=== PATIENT | male | born 1980 | race Caucasian/White ===

== ENCOUNTER 2019-01-14 17:17 | Emergency (ER) | payer MEDICARE, OTHER ==
[~2019-01-14] VITALS: Ht 162.6 cm; Wt 134.3 kg
[~2019-01-14 17:17] MED LIST: ALBU3IS NEB; ARIP15; CEFD300; DIVA250ER PO; DIVA500EC PO; GUAI600T33 PO; HYDHOMSY PO; LEVO750 PO; LEVSOD75 PO; LORA10ER; LORA10ER PO; LOVA20 PO; METPRE4DP PO; MONT10T; MONT10T PO; NEOPOLHCSU OT; PRED10 PO; Percocet 5-3251 EACH PO; Prednisone20 MG PO; SERT100
[2019-01-14] MEDS ORDERED: FURO40 PO (17:47)
[2019-01-14] MEDS ORDERED: SERT100 PO (17:47)
[2019-01-14] MEDS ORDERED: POTCHL20ER PO (17:48)
[2019-01-14 18:23] LABS: BASOPHILS ABSOLUTE AUTO 0.07 K/mm3 (0.00-0.23); BASOPHILS PERCENT AUTO 1 % (0-2); EOSINOPHILS ABSOLUTE AUTO 0.01 K/mm3 (0.00-0.68); EOSINOPHILS PERCENT AUTO 0 % (0-6); Hematocrit 37.6 % (37.0-53.0); Hemoglobin 12.2 g/dL (13.5-17.5); IMMATURE GRAN ABSOLUTE AUTO 0.05 K/mm3 (0.00-0.10); IMMATURE GRAN PERCENT AUTO 1 % (0-1); LYMPHOCYTES ABSOLUTE AUTO 1.11 K/mm3 (0.84-5.20); LYMPHOCYTES PERCENT AUTO 12 % (21-46); MONOCYTES ABSOLUTE AUTO 0.65 K/mm3 (0.16-1.47); MONOCYTES PERCENT AUTO 7 % (4-13); Mean Corpuscular HGB 31.8 pg (26.0-34.0); Mean Corpuscular HGB Conc 32.4 g/dL (31.5-36.5); Mean Corpuscular Volume 98 fL (80-100); Mean Platelet Volume 11.2 fL (9.1-12.4); NEUTROPHILS ABSOLUTE AUTO 7.23 K/mm3 (1.96-9.15); NEUTROPHILS PERCENT AUTO 79 % (41-73); Platelet Count 175 K/mm3 (150-400); RDW Coefficient Variation 14.3 % (11.7-14.2); RDW Standard Deviation 50.9 fL (35.1-46.3); Red Blood Cell Count 3.84 M/mm3 (4.30-5.90); White Blood Cell Count 9.12 K/mm3 (4.00-11.30)
[2019-01-14 19:06] LABS: Alanine Aminotransfer (ALT/SGP 15 U/L (12-78); Albumin, Blood 3.1 g/dL (3.4-5.0); Albumin/Globulin Ratio 0.6 (0.8-1.8); Alk Phos 68 U/L (50-136); Anion Gap 8 mmol/L (6-16); Aspartate Aminotrans (AST/SGOT 13 U/L (12-37); Bilirubin, Total 0.3 mg/dL (0.1-1.0); Blood Urea Nitrogen 19 mg/dL (8-24); Bun/Creatinine Ratio 18.8 (12.0-20.0); CO2, Blood 27 mmol/L (21-32); Chloride, Blood 103 mmol/L (98-108); Creatinine, Blood 1.01 mg/dL (0.60-1.20); Globulin, Blood 5.1 g/dL (2.2-4.0); Glomerular Filtration Rate >60 (60-); Glucose, Blood 98 mg/dL (70-99); Potassium, Blood 3.8 mmol/L (3.5-5.5); Sodium, Blood 138 mmol/L (136-145); Total Protein, Blood 8.2 g/dL (6.4-8.2)
[2019-01-14] MEDS ORDERED: Prednisone20 MG PO (20:02)
== END 2019-01-14 20:11 | disposition home or self-care (01) ==
LOC: ER 17:17
PROVIDERS: Emergency Medicine
DX: J45.901 Unspecified asthma with (acute) exacerbation (principal); Z79.899 Other long term (current) drug therapy; F32.9 Major depressive disorder, single episode, unspecified
CPT/HCPCS: 36415; 80053; 83880; 84484; 85025; 93005; 93010; 94640; 96374; 99283-25; J2930

== ENCOUNTER → 2020-01-10 | Outpatient (CLI) | payer MEDICARE, OTHER ==
[~2020-01-10] MED LIST changes: +FURO40 PO; +POTCHL20ER PO; +SERT100 PO
== END | disposition home or self-care (01) ==
LOC: LAB SHORT 16:18 → LAB EV 16:18
DX: L03.119 Cellulitis of unspecified part of limb (principal)
CPT/HCPCS: 87070; 87077; 87147; 87186; 87205

== ENCOUNTER 2021-05-30 18:11 | Inpatient (IN) | payer MEDICARE, OTHER ==
[~2021-05-30] VITALS: Ht 167.6 cm; Wt 125.7 kg
[2021-05-30 19:50] LABS: Alanine Aminotransfer (ALT/SGP 22 U/L (12-78); Albumin, Blood 2.4 g/dL (3.4-5.0); Albumin/Globulin Ratio 0.4 (0.8-1.8); Alk Phos 63 U/L (50-136); Anion Gap 10 mmol/L (6-16); Aspartate Aminotrans (AST/SGOT 45 U/L (12-37); BASOPHILS ABSOLUTE AUTO 0.02 K/mm3 (0.00-0.23); BASOPHILS PERCENT AUTO 0 % (0-2); Bilirubin, Total 0.6 mg/dL (0.1-1.0); Blood Urea Nitrogen 58 mg/dL (8-24); Bun/Creatinine Ratio 34.3 (12.0-20.0); CO2, Blood 29 mmol/L (21-32); Calcium, Blood 8.2 mg/dL (8.5-10.1); Chloride, Blood 96 mmol/L (98-108); Creatinine, Blood 1.69 mg/dL (0.60-1.20); EOSINOPHILS PERCENT AUTO 0 % (0-6); Globulin, Blood 5.5 g/dL (2.2-4.0); Glomerular Filtration Rate 46 (60-); Glucose, Blood 107 mg/dL (70-99); Hematocrit 38.2 % (37.0-53.0); Hemoglobin 12.8 g/dL (13.5-17.5); Magnesium, Blood 2.2 mg/dL (1.6-2.4); Mean Corpuscular HGB 30.8 pg (26.0-34.0); Mean Corpuscular HGB Conc 33.5 g/dL (31.5-36.5); Mean Corpuscular Volume 92 fL (80-100); Mean Platelet Volume 12.3 fL (9.1-12.4); NRBC ABSOLUTE 0.05 K/mm3 (0.00-0.02); Platelet Count 116 K/mm3 (150-400); RDW Coefficient Variation 14.8 % (11.7-14.2); Red Blood Cell Count 4.16 M/mm3 (4.30-5.90); Sodium, Blood 135 mmol/L (136-145); Total Protein, Blood 7.9 g/dL (6.4-8.2); Troponin I <0.015 ng/mL (0.000-0.040); White Blood Cell Count 5.22 K/mm3 (4.00-11.30)
[2021-05-30 19:51] LABS: IMMATURE GRAN ABSOLUTE AUTO 0.11 K/mm3 (0.00-0.10); IMMATURE GRAN PERCENT AUTO 2 % (0-1); LYMPHOCYTES PERCENT AUTO 8 % (21-46); MONOCYTES ABSOLUTE AUTO 0.27 K/mm3 (0.16-1.47); MONOCYTES PERCENT AUTO 5 % (4-13); NEUTROPHILS ABSOLUTE AUTO 4.42 K/mm3 (1.96-9.15); NEUTROPHILS PERCENT AUTO 85 % (41-73)
[2021-05-30] MEDS ORDERED: ALBU2.5V5 INH (23:26)
--- NOTE | 2021-05-31 00:01 | NUR ---
PT ADMITTED VIA GURNEY FROM ER. PT TRANSFERRED TO MEDICAL FLOOR BED WITH 4 STAFF PRESENT. PT ABLE TO FOLLOW INSTRUCTIONS WITH TURNING SIDE TO SIDE. PT IS ALERT TO PERSON, REORIENTED TO SURROUNDINGS, CALL LIGHT, DATE/TIME. PT HAS DOWN SYNDROME. PT ABLE TO ANSWER YES/NO QUESTIONS, AND RESPONDS TO OCCASIONAL QUESTION APPROPRIATELY. PT PLACED ON 15L HIGH FLOW, WITH HUMIDIFIED OXYGEN. CALL LIGHT WITHIN REACH. BED ALARM ON FOR PT SAFETY. IV TO LEFT HAND FLUSHED WITHOUT COMPLICATIONS.
--- NOTE | 2021-05-31 01:04 | NUR ---
PT IS CURRENTLY SLEEPING, AWAKENS TO VERBAL COMMUNICATION BUT DRIFTS OFF BACK TO SLEEP. PT AWOKE STARTED, REORIENTED TO ROOM, CALL LIGHT. BED ALARM ON. URINAL AT BEDSIDE.
[2021-05-31 05:32] LABS: BASOPHILS ABSOLUTE AUTO 0.01 K/mm3 (0.00-0.23); BASOPHILS PERCENT AUTO 0 % (0-2); EOSINOPHILS PERCENT AUTO 0 % (0-6); Hematocrit 36.2 % (37.0-53.0); Hemoglobin 11.9 g/dL (13.5-17.5); Mean Corpuscular HGB 30.7 pg (26.0-34.0); Mean Corpuscular HGB Conc 32.9 g/dL (31.5-36.5); Mean Corpuscular Volume 94 fL (80-100); Mean Platelet Volume 12.5 fL (9.1-12.4); NRBC ABSOLUTE 0.03 K/mm3 (0.00-0.02); NRBC Auto 0.6 /100 WBC (0.0-0.2); Platelet Count 112 K/mm3 (150-400); RDW Coefficient Variation 14.8 % (11.7-14.2); RDW Standard Deviation 51.2 fL (35.1-46.3); Red Blood Cell Count 3.87 M/mm3 (4.30-5.90); White Blood Cell Count 5.39 K/mm3 (4.00-11.30)
[2021-05-31 05:40] LABS: IMMATURE GRAN ABSOLUTE AUTO 0.09 K/mm3 (0.00-0.10); IMMATURE GRAN PERCENT AUTO 2 % (0-1); LYMPHOCYTES PERCENT AUTO 6 % (21-46); MONOCYTES ABSOLUTE AUTO 0.16 K/mm3 (0.16-1.47); MONOCYTES PERCENT AUTO 3 % (4-13); NEUTROPHILS ABSOLUTE AUTO 4.83 K/mm3 (1.96-9.15); NEUTROPHILS PERCENT AUTO 90 % (41-73)
[2021-05-31 05:42] LABS: Albumin, Blood 2.3 g/dL (3.4-5.0); Albumin/Globulin Ratio 0.4 (0.8-1.8); Bilirubin, Total 0.6 mg/dL (0.1-1.0); Bun/Creatinine Ratio 36.2 (12.0-20.0); Calcium, Blood 8.3 mg/dL (8.5-10.1); Creatinine, Blood 1.52 mg/dL (0.60-1.20); Globulin, Blood 5.4 g/dL (2.2-4.0); Potassium, Blood 4.8 mmol/L (3.5-5.5); Total Protein, Blood 7.7 g/dL (6.4-8.2)
--- NOTE | 2021-05-31 07:22 | NUR ---
SHIFT SUMMARY - NO ACUTE CHANGES SINCE ADMIT LAST NOC AT 2400. LR INFUSING WITHOUT DIFFICULTY TO LEFT HAND IV SITE. PT'S MOUTH/LIPS VERY DRY - ORAL CARE PROVIDED, PT TOLERATED PO FLUIDS WITHOUT DIFFICULTY. SATS WNL 15 L OXYGEN VIA HF NC. PT HAS DOWN SYNDROME. PT SLOW TO RESPOND, BUT HAS BEEN ABLE TO MAKE HIS NEEDS KNOWN WHILE IN THE ROOM. CALL LIGHT WITHIN REACH. BED IN LOW POSITION. FLUIDS AT BEDSIDE. BED ALARM ON FOR PT SAFETY.
[2021-05-31 07:56] LABS: PCO2 Arterial 52.4 mmHg (35-45); PO2 Arterial 70.3 mmHg (80-100); pH Blood Arterial 7.41 (7.35-7.45)
--- NOTE | 2021-05-31 08:45 | NUR ---
UPGRADE TO BIPAP. PER CONVO WITH DR. BARBER THIS AM, PT NEEDS TO BE PLACED ON BIPAP TO HELP WITH CO2 RETENTION. NEEMA, RT NOTIFIED.
--- NOTE | 2021-05-31 11:29 | NUR ---
PTS MOTHER JOSE RAMON UPDATED PTS MOTHER UPDATED. DURING UPDATE SHE STATED THAT SHE DID NOT WANT HER SON RECIEVING REMDESIVIR. PT EDUCATED THAT WE OBSEVERE KIDNEY FUNCTION PRIOR TO STARTING THIS MEDICATION. PT STATES SHE3 DOES CARE AND WANTS HER SON TO BE ON IVERMECTIN INSTEAD. DR. BARBER RELAYED THIS INFO AND GIVEN PTS MOTHERS NUMBER.
[2021-05-31 18:14] LABS: Source, Urine Catheter
[2021-05-31 18:18] LABS: Appearance, Urine Clear (Clear); Bilirubin, Urine Neg (Neg); Blood, Urine Neg (Neg); Color, Urine Yellow (P-Yellow); Glucose Qualitative, Urine Neg (Neg); Ketones, Urine Neg (Neg); Leukocyte Esterase, Urine Neg (Neg); Nitrite, Urine Neg (Neg); Protein, Urine 1+ (Neg); Specific Gravity, Urine 1.015 (1.003-1.022); Urobilinogen, Urine 1+ (Normal)
--- NOTE | 2021-05-31 18:32 | NUR ---
SHIFT SUMMARY/URINARY RETENTION PT TRANSITIONED TO THE CPAP 70% FIO2. PT CURRENTLY ON HFT MODE AND TOLERATING WELL AT 92%. PT UNABLE TO VOID THIS SHIFT. BLADDER SCAN VOLUME REVEALED MORE THAN 1400. DR. HUFF NOTIFIED AND ORDER FOR MUÑOZ CATH OBTAINED. MUÑOZ PLACED. PT DID NOT TOLERATE WELL. UNCIRCUMSIZED AND URETHRA WAS DIFFICULT TO LOCATE. DISCHARGE IN THE FORSKIN. MUÑOZ NOW DRAINING WELL. CLAMPED AFTER 1300 CC OUTPUT. MICONAZOLE ORDERED FOR YEAST IN FOLDS.
--- NOTE | 2021-06-01 00:19 | NUR ---
RESPIRATORY PANEL COLLECTED AND SENT TO LAB.
[2021-06-01 01:19] LABS: Adenovirus Not Detected (NOT DETECT); Coronavirus 229E Not Detected (NOT DETECT); Coronavirus HKU1 Not Detected (NOT DETECT); Coronavirus NL63 Not Detected (NOT DETECT); Coronavirus OC43 Not Detected (NOT DETECT)
[2021-06-01 01:20] LABS: SARS-Cov-2 (COVID-19), BioFire Detected (NOT DETECT)
[2021-06-01 01:22] LABS: Bordetella pertussis Not Detected (NOT DETECT); Chlamydophila pneumoniae Not Detected (NOT DETECT); Human Metapneumovirus Not Detected (NOT DETECT); Human Rhinovirus/Enterovirus Not Detected (NOT DETECT); Influenza A/2009-H1 Not Detected (NOT DETECT); Influenza A/H1 Not Detected (NOT DETECT); Influenza A/H3 Not Detected (NOT DETECT); Influenza B Not Detected (NOT DETECT); Mycoplasma pneumoniae Not Detected (NOT DETECT); Parainfluenza Virus 1 Not Detected (NOT DETECT); Parainfluenza Virus 2 Not Detected (NOT DETECT); Parainfluenza Virus 3 Not Detected (NOT DETECT); Parainfluenza Virus 4 Not Detected (NOT DETECT); Respiratory Syncytial Virus Not Detected (NOT DETECT)
[2021-06-01 06:50] LABS: Hemoglobin 12.1 g/dL (13.5-17.5); Mean Corpuscular HGB 30.5 pg (26.0-34.0); Mean Corpuscular HGB Conc 31.8 g/dL (31.5-36.5); Mean Corpuscular Volume 96 fL (80-100); Mean Platelet Volume 12.5 fL (9.1-12.4); NRBC ABSOLUTE 0.07 K/mm3 (0.00-0.02); NRBC Auto 0.9 /100 WBC (0.0-0.2); Platelet Count 113 K/mm3 (150-400); RDW Coefficient Variation 14.9 % (11.7-14.2); RDW Standard Deviation 52.4 fL (35.1-46.3); Red Blood Cell Count 3.97 M/mm3 (4.30-5.90); White Blood Cell Count 8.04 K/mm3 (4.00-11.30)
[2021-06-01 07:15] LABS: Alanine Aminotransfer (ALT/SGP 19 U/L (12-78); Albumin, Blood 2.4 g/dL (3.4-5.0); Albumin/Globulin Ratio 0.4 (0.8-1.8); Alk Phos 55 U/L (50-136); Anion Gap 8 mmol/L (6-16); Aspartate Aminotrans (AST/SGOT 32 U/L (12-37); Bilirubin, Total 0.4 mg/dL (0.1-1.0); Blood Urea Nitrogen 38 mg/dL (8-24); Bun/Creatinine Ratio 37.3 (12.0-20.0); CO2, Blood 28 mmol/L (21-32); Calcium, Blood 8.8 mg/dL (8.5-10.1); Chloride, Blood 98 mmol/L (98-108); Creatinine, Blood 1.02 mg/dL (0.60-1.20); Globulin, Blood 5.5 g/dL (2.2-4.0); Glomerular Filtration Rate >60 (60-); Glucose, Blood 182 mg/dL (70-99); Magnesium, Blood 1.9 mg/dL (1.6-2.4); Sodium, Blood 134 mmol/L (136-145); Total Protein, Blood 7.9 g/dL (6.4-8.2)
[2021-06-01 07:39] LABS: BASOPHILS PERCENT MAN 0 % (0-2); EOSINOPHILS PERCENT MAN 0 % (0-6); LYMPHOCYTES % ATYPICAL MANUAL 1 % (0-0); LYMPHOCYTES ABSOLUTE MAN 0.16 K/mm3 (0.84-5.20); LYMPHOCYTES PERCENT MAN 1 % (21-46); MONOCYTES ABSOLUTE MAN 0.48 K/mm3 (0.16-1.47); MONOCYTES PERCENT MAN 6 % (4-13); NEUTROPHILS ABSOLUTE MAN 7.39 K/mm3 (1.96-9.15); SEG NEUTROPHILS PERCENT MAN 92 % (41-73); TOTAL CELLS COUNTED 100
--- NOTE | 2021-06-01 07:52 | NUR ---
PT WAS ALERT AND ORIENTED AT START OF SHIFT. ON AIRVO AND SATS 90 AND ABOVE. AT 0500 PT STARTED TO DESATURATE ON MONITOR. STAFF ENTERED ROOM WITH PULSE OX AND MONITORED FROM INSIDE. PT CONTINUED TO DESATURATE TO MID 60'S AND BECAME UNRESPONSIVE WHILE RT ON THEIR WAY. ONCE ON BIPAP PT'S O2 STARTED TO INCREASE BACK TO HIS BASELINE. PT THEN BECAME ALERT AND SCARED. PT STARTED TO SHAKE RAPIDLY WHILE TRYING TO PULL HIS BIPAP OFF AND CLIMB OUT OF BED. PT STATES "TAKE IT OFF PLEASE AND i WANT MY MOM." ORDER FOR 1 MG IV ATIVAN WAS ADMIN AND PT WAS ABLE TO RELAX. CURRENTLY RESTING ON BIPAP WITH SATS 90 AND ABOVE. STAFF WILL CONT TO MONITOR.
[2021-06-01 13:33] LABS: PCO2 Arterial 54.1 mmHg (35-45); PO2 Arterial 246 mmHg (80-100); pH Blood Arterial 7.43 (7.35-7.45)
--- NOTE | 2021-06-01 18:49 | NUR ---
SHIFT SUMMARY PT ON BIPAP MOST THE DAY. LETHARGIC THIS AM. ABG CHECKED TODAY. PT MOM VISITED AND UPDATED ON PLAN OF CARE AT THIS TIME. PT TRANSITIONED TO HFT MODE WITH NASAL CANULA CURRENTLY AND TOLERATING WELL. ONE TIME DOSE OF LASIX GIVEN TO HELP WITH FLUID RETENTION. MUÑOZ PATENT & DRAINING.
--- NOTE | 2021-06-02 04:02 | NUR ---
SHIFT SUMMARY PATIENT HAD NO ACUTE CHANGES OBSERVED. LETHARGIC T/O SHIFT. ON HFT MODE STATING 86-92%. MUÑOZ PATENT AND DRAINING. PIV REMAINS INTACT. IV ABXS INFUSED. LR INFUSING AT 75mL/HR. DENIES PAIN AND N/V. BEDREST. NO ANXIETY EVENTS OBSEVED. CBG 99. CALL LIGHT IN REACH. BED IN LOWEST POSITION AND ALARM ACTIVATED. WCTM UNTIL DAY SHIFT NURSE ARRIVES.
[2021-06-02 05:04] LABS: Hematocrit 34.1 % (37.0-53.0); Hemoglobin 11.1 g/dL (13.5-17.5); Mean Corpuscular HGB 30.9 pg (26.0-34.0); Mean Corpuscular HGB Conc 32.6 g/dL (31.5-36.5); Mean Corpuscular Volume 95 fL (80-100); NRBC ABSOLUTE 0.04 K/mm3 (0.00-0.02); NRBC Auto 0.5 /100 WBC (0.0-0.2); RDW Coefficient Variation 15.3 % (11.7-14.2); RDW Standard Deviation 53.1 fL (35.1-46.3); Red Blood Cell Count 3.59 M/mm3 (4.30-5.90)
[2021-06-02 05:09] LABS: Mean Platelet Volume 12.3 fL (9.1-12.4); Platelet Count 80 K/mm3 (150-400)
[2021-06-02 05:39] LABS: Albumin, Blood 2.1 g/dL (3.4-5.0); Anion Gap 5 mmol/L (6-16); Blood Urea Nitrogen 27 mg/dL (8-24); Bun/Creatinine Ratio 30.6 (12.0-20.0); CO2, Blood 31 mmol/L (21-32); Calcium, Blood 8.2 mg/dL (8.5-10.1); Chloride, Blood 101 mmol/L (98-108); Creatinine, Blood 0.88 mg/dL (0.60-1.20); Glomerular Filtration Rate >60 (60-); Glucose, Blood 83 mg/dL (70-99); Magnesium, Blood 1.8 mg/dL (1.6-2.4); Potassium, Blood 4.3 mmol/L (3.5-5.5); Sodium, Blood 137 mmol/L (136-145)
[2021-06-02 06:36] LABS: BASOPHILS PERCENT MAN 0 % (0-2); EOSINOPHILS PERCENT MAN 0 % (0-6); LYMPHOCYTES ABSOLUTE MAN 1.02 K/mm3 (0.84-5.20); LYMPHOCYTES PERCENT MAN 14 % (21-46); MONOCYTES ABSOLUTE MAN 0.21 K/mm3 (0.16-1.47); MONOCYTES PERCENT MAN 3 % (4-13); NEUTROPHILS ABSOLUTE MAN 6.05 K/mm3 (1.96-9.15); SEG NEUTROPHILS PERCENT MAN 83 % (41-73); TOTAL CELLS COUNTED 100
--- NOTE | 2021-06-02 17:26 | NUR ---
PT AOX3 AND COOPERATIVE OF CARE. PT HAS BEEN DOING WELL TODAY AND WAS PUT ON HIGH FLOW NASAL CANULA AND HAS BEEN DOING WELL. PT SEEMS TO BE IN GOOD SPIRITS AND MOTHER IS AT BEDSIDE VISITING. PT IS ABLE TO USE CALL LIGHT AND BED ALARM IS IN PLACE. PT CONTINUES TO HAVE A COUGH AND WILL DESAT WITH A LOT OF MOVEMENT, BUT RECOVERS. WILL CONTINUE TO MONITOR.
--- NOTE | 2021-06-03 05:44 | NUR ---
Pt did well throughout the night, pt on NC, tolerated well. Pt takes pills in a/s, LR running at 75. Contiue POC
--- NOTE | 2021-06-03 17:32 | NUR ---
SHIFT SUMMARY PATIENT IS ALERT AND ORIENTED 2-3X. PATIENT HAS GONE FROM 12L HIGH FLOW NASAL CANNULA TO 15L DURING SHIFT TO MAINTAIN SATS IN THE LOW 90S. PATIENTS MOTHER HAS BEEN VISITING DURING THE AFTERNOON HOURS AND SEEMS TO BRIGHTEN PATIENTS MOOD. PATIENT DESATS WITH MOVEMENT AND EATING. BED IS IN LOCKED AND LOWEST POSITION AND CALL LIGHT IS IN REACH. NO ADDITIONAL NEEDS AT THIS TIME. WILL CONTINUE TO MONITOR UNTIL END OF SHIFT.
--- NOTE | 2021-06-03 17:39 | NUR ---
SHIFT SUMMARY PATIENT ALERT AND ORIENTED X4. PATIENT PLEASANT AND COOPERATIVE WITH CARE. PATIENT HAS BEEN TITRATED DOWN FROM 55L 85% TO 50L 67% ON AIRVO AND MAINTAINING SATS AT 93-94 PERCENT ON LOWERED TITRATION. PATIENT STATES THAT HE FEELS BETTER AND DOES NOT COMPLAIN OF PAIN, SHORTNESS OF BREATH OR ANY NEEDS AT THIS TIME. PATIENTS DAUGHTER WAS UPDATED ON PATIENTS STATUS AND OXYGEN NEEDS THIS AFTERNOON. PATIENT IS CONINENT AND USES URINAL. TELE SINUS RHYTHM. WILL CONTINUE TO MONITOR UNTIL END OF SHIFT.
--- NOTE | 2021-06-03 17:53 | NUR ---
ADMIT: 05/31/21 DISCHARGE: TBD DX: ACUTE RESP. FAILURE DUE TO COVID-19 CC: Manuel WISE MAHESH CALL: MOTHER JOSE RAMON RESIDENCE: LIVES WITH MOTHER - [id number] [facility] [id number] CAREGIVER: MOTHER JOSE RAMON [phone] PRIOR TO ADMIT - DME: CPAP CHRONIC CARE MANAGEMENT: NONE HHC/HOSPICE: NONE UPDATE 06/03/21: PT. ADMITTED OVER THE WEEKEND. PER CHART REVIEW THIS AM, PT. DID NOT HAVE ANY SIGNIFICANT CHANGES OVERNIGHT. NOTED TO CURRENTLY BY ON 15LPM NC WITH SPO2 OF 91%. INCREASE FROM THE 10 LPM HAS BEEN ON. PATIENT'S MOTHER HAS VISITED HIM TODAY. SHE HAS BEEN UPDATED REGARDING HIS CONDITION. ANTICIPATED NEEDS AT TIME OF DISCHARGE TO INCLUDE: HOME O2 EVAL., HOME O2 POTENTIALLY (DEPENDENT UPON IMPROVEMENTS), XARELTO/ELQUIS SAMPLES, AND HOSPITAL F/U WITH 5-7 DAYS POST DISCHARGE. PLAN TO CONTINUE TO FOLLOW PATIENTS PROGRESS AND ASSIST WITH CARE COORDINATION AND DISCHARGE PLANNING NEEDED.
--- NOTE | 2021-06-04 04:56 | NUR ---
SHIFT SUMMARY PT HAS RESTED MOST OF THE NIGHT, AND PREFERS NOT TO BE DISTURBED BY STAFF. PT ON 15L HIGH FLOW THROUGHOUT THE NIGHT AND MAINTAINS SATS IN THE LOW 90'S. PT OCCASIONALLY DESATS IN THE 80'S BUT QUICKLY RECOVERS. PT RESPIRATIONS APPEAR E/U AT REST AND PT DOES NOT APPEAR IN ANY DISTRESS. OCCASIONAL DRY COUGH. IV ABX AND STEROIDS PER ORDERS. MUÑOZ IN PLACE PATENT AND DRAINING. NO ACUTE CHANGES OVERNIGHT. BED IN LOWEST POSITION, CALL LIGHT WITHIN REACH.
[2021-06-04 05:37] LABS: BASOPHILS ABSOLUTE AUTO 0.02 K/mm3 (0.00-0.23); BASOPHILS PERCENT AUTO 0 % (0-2); EOSINOPHILS PERCENT AUTO 0 % (0-6); Hematocrit 34.6 % (37.0-53.0); Hemoglobin 11.4 g/dL (13.5-17.5); Mean Corpuscular HGB 30.6 pg (26.0-34.0); Mean Corpuscular HGB Conc 32.9 g/dL (31.5-36.5); Mean Corpuscular Volume 93 fL (80-100); Mean Platelet Volume 11.8 fL (9.1-12.4); Platelet Count 141 K/mm3 (150-400); RDW Coefficient Variation 14.3 % (11.7-14.2); RDW Standard Deviation 48.5 fL (35.1-46.3); Red Blood Cell Count 3.73 M/mm3 (4.30-5.90); White Blood Cell Count 7.04 K/mm3 (4.00-11.30)
[2021-06-04 05:43] LABS: IMMATURE GRAN ABSOLUTE AUTO 0.19 K/mm3 (0.00-0.10); IMMATURE GRAN PERCENT AUTO 3 % (0-1); LYMPHOCYTES ABSOLUTE AUTO 0.45 K/mm3 (0.84-5.20); LYMPHOCYTES PERCENT AUTO 6 % (21-46); MONOCYTES ABSOLUTE AUTO 0.46 K/mm3 (0.16-1.47); MONOCYTES PERCENT AUTO 7 % (4-13); NEUTROPHILS ABSOLUTE AUTO 5.92 K/mm3 (1.96-9.15); NEUTROPHILS PERCENT AUTO 84 % (41-73)
[2021-06-04 05:58] LABS: Anion Gap 2 mmol/L (6-16); Blood Urea Nitrogen 23 mg/dL (8-24); Bun/Creatinine Ratio 31.2 (12.0-20.0); CO2, Blood 32 mmol/L (21-32); Calcium, Blood 8.9 mg/dL (8.5-10.1); Chloride, Blood 101 mmol/L (98-108); Creatinine, Blood 0.74 mg/dL (0.60-1.20); Glomerular Filtration Rate >60 (60-); Glucose, Blood 166 mg/dL (70-99); Potassium, Blood 4.5 mmol/L (3.5-5.5); Sodium, Blood 135 mmol/L (136-145)
--- NOTE | 2021-06-04 08:37 | NUR ---
HARD TO FLUSH, APPEARS PULLED OUT, WILL RESTART NEW
--- NOTE | 2021-06-04 17:08 | NUR ---
SHIFT SUMMARY PATIENT HAS HAD NO ACUTE EVENTS DURING SHIFT. PATIENT IS ON 13 LITERS HIGH FLOW NASAL CANNULA CURRENTLY AND SATTING IN THE LOW 90S. PATIENT HAS HAD NO COMPLAINTS OF PAIN, NAUSEA, VOMITTING OR SHORTNESS OF BREATH. PATIENTS MOM/CAREGIVER HAS VISITED MOST OF THE SHIFT AND HAS HELPED PATIENTS MOOD. PATIENT HAS HAD INCREASED APPETITE TODAY AND AMBULATED TO CHAIR FOR MEALS AND DOES NO DESAT WHILE EATING.
--- NOTE | 2021-06-04 23:24 | NUR ---
PT has downs syndrome & refusing care & IV restart. IV patent but positional. Solumedrol given & saline flush.
[2021-06-05 05:29] LABS: BASOPHILS ABSOLUTE AUTO 0.02 K/mm3 (0.00-0.23); BASOPHILS PERCENT AUTO 0 % (0-2); EOSINOPHILS PERCENT AUTO 0 % (0-6); Hematocrit 36.5 % (37.0-53.0); Hemoglobin 11.8 g/dL (13.5-17.5); Mean Corpuscular HGB 30.5 pg (26.0-34.0); Mean Corpuscular HGB Conc 32.3 g/dL (31.5-36.5); Mean Corpuscular Volume 94 fL (80-100); Mean Platelet Volume 12.6 fL (9.1-12.4); Platelet Count 157 K/mm3 (150-400); RDW Coefficient Variation 14.3 % (11.7-14.2); RDW Standard Deviation 49.7 fL (35.1-46.3); Red Blood Cell Count 3.87 M/mm3 (4.30-5.90); White Blood Cell Count 6.87 K/mm3 (4.00-11.30)
[2021-06-05 05:37] LABS: IMMATURE GRAN ABSOLUTE AUTO 0.28 K/mm3 (0.00-0.10); IMMATURE GRAN PERCENT AUTO 4 % (0-1); LYMPHOCYTES ABSOLUTE AUTO 0.56 K/mm3 (0.84-5.20); LYMPHOCYTES PERCENT AUTO 8 % (21-46); MONOCYTES ABSOLUTE AUTO 0.41 K/mm3 (0.16-1.47); MONOCYTES PERCENT AUTO 6 % (4-13); NEUTROPHILS PERCENT AUTO 81 % (41-73)
[2021-06-05 05:56] LABS: Anion Gap 3 mmol/L (6-16); Blood Urea Nitrogen 25 mg/dL (8-24); Bun/Creatinine Ratio 34.4 (12.0-20.0); CO2, Blood 33 mmol/L (21-32); Calcium, Blood 8.9 mg/dL (8.5-10.1); Chloride, Blood 101 mmol/L (98-108); Creatinine, Blood 0.73 mg/dL (0.60-1.20); Glomerular Filtration Rate >60 (60-); Glucose, Blood 214 mg/dL (70-99); Potassium, Blood 5.2 mmol/L (3.5-5.5); Sodium, Blood 137 mmol/L (136-145)
--- NOTE | 2021-06-05 06:48 | NUR ---
40 YEAR OLD mALE WITH DOWNS SYNDROME & ASTHMA WITH COVID 19 CONTINUES ON IV STEROIDS & BLOOD GLUCOSE IS ELEVATED ABOVE 200. HE HAS MUÑOZ CATH PLACED FOR ACUTE URINARY RETENTION & I DRAINED 2400 ML DILUTE YELLOW URINE. MEDS WHOLE IN APPLESAUCE PT WAS REFUSING CARES & ASSESSMENT AT HS 7 REFUSED ATTENDS CHANGE ALSO. ONCONT OF PASTY DARK BROWN BM. CONTINUES ON BIOXX &13 L OXIMIXER TO KEEP SATS GREATER THAN 90% OCC DESATS TO 88%.
--- NOTE | 2021-06-05 10:10 | NUR ---
Update 06/05/21: Day 6 of hospitalization. Oxygen needs 13 LPM high flow NC. SPO2 95%. Pt. desats with activity. Patient's mother Adelita has been able to visit him. Nursing notes that pt. has declined care at times. Anticipated needs at time of discharge to include: Home O2 eval, Home O2, hospital F/U within 5-7 days. Patient's mother is his caregiver. Current plan for pt. to return home with his mother Adelita at time of discharge.
--- NOTE | 2021-06-05 18:16 | NUR ---
PATIENT IS ALERT AND ORIENTED AND COOPERATIVE WITH CARE. MUÑOZ IS IN PLACE AND DRAINING. ON 13L OXIMYZER. INCONTINENT OF STOOL. THE PATIENT'S MOM WAS AT THE BEDSIDE THIS AFTERNOOON. HE HAS BEEN UP TO THE RECLINER SINCE LUNCH. WILL BELINDA TO MONITOR
--- NOTE | 2021-06-06 03:30 | NUR ---
40 year old Male with Downs syndrome & covid 19 weaned from 15 l high flow to 8 l high flow oxygen & tolerated well with sats 89 to 97% at rest. HE continues with perez cath for acute urinary retention & again has over 2000 ml urine out in 12 hr shift. He is more pleasant but does says he wants to sleep. Reportedly up in bedside chair on dayshift lunch thru dinner. Sips water only my shift. Does not use call caicedo. Mother involved in care on day shift.
[2021-06-06 05:29] LABS: BASOPHILS ABSOLUTE AUTO 0.03 K/mm3 (0.00-0.23); BASOPHILS PERCENT AUTO 0 % (0-2); EOSINOPHILS PERCENT AUTO 0 % (0-6); Hematocrit 38.7 % (37.0-53.0); Hemoglobin 12.5 g/dL (13.5-17.5); Mean Corpuscular HGB 30.8 pg (26.0-34.0); Mean Corpuscular HGB Conc 32.3 g/dL (31.5-36.5); Mean Corpuscular Volume 95 fL (80-100); Mean Platelet Volume 12.4 fL (9.1-12.4); Platelet Count 166 K/mm3 (150-400); RDW Coefficient Variation 14.2 % (11.7-14.2); RDW Standard Deviation 49.7 fL (35.1-46.3); Red Blood Cell Count 4.06 M/mm3 (4.30-5.90); White Blood Cell Count 7.94 K/mm3 (4.00-11.30)
[2021-06-06 05:43] LABS: IMMATURE GRAN ABSOLUTE AUTO 0.22 K/mm3 (0.00-0.10); IMMATURE GRAN PERCENT AUTO 3 % (0-1); LYMPHOCYTES ABSOLUTE AUTO 0.73 K/mm3 (0.84-5.20); LYMPHOCYTES PERCENT AUTO 9 % (21-46); MONOCYTES ABSOLUTE AUTO 0.46 K/mm3 (0.16-1.47); MONOCYTES PERCENT AUTO 6 % (4-13); NEUTROPHILS PERCENT AUTO 82 % (41-73)
[2021-06-06 05:55] LABS: Anion Gap 2 mmol/L (6-16); Blood Urea Nitrogen 26 mg/dL (8-24); Bun/Creatinine Ratio 36.5 (12.0-20.0); CO2, Blood 34 mmol/L (21-32); Calcium, Blood 8.9 mg/dL (8.5-10.1); Chloride, Blood 101 mmol/L (98-108); Creatinine, Blood 0.71 mg/dL (0.60-1.20); Glomerular Filtration Rate >60 (60-); Glucose, Blood 196 mg/dL (70-99); Potassium, Blood 5.1 mmol/L (3.5-5.5); Sodium, Blood 137 mmol/L (136-145)
--- NOTE | 2021-06-06 06:53 | NUR ---
continued to wean high flow oxygen down to 5 l nc. O2 says 89 to 95 % on 5 l .
--- NOTE | 2021-06-06 18:43 | NUR ---
PATIENT IS ALERT AND ORIENTED AND COOPERATIVE WITH CARE. IMMODIUM ORDERED FOR LOOSE STOOLS THIS AFTERNOON. ON 5L OXYMIZER. UP TO CHAIR FOR BREAKFAST AND DINNER. MUÑOZ IS IN PLACE AND DRAINING. THE PATIENT'S MOM WAS AT THE BEDSIDE THIS AFTERNOON AND ASKED TO TALK TO DR. KIRK. DR. KIRK SAID SHE WOULD CALL THE PATIENT'S MOM TOMORROW. NO NEW CONCERNS TODAY. WILL CONTINUE TO MONITOR
--- NOTE | 2021-06-07 02:53 | NUR ---
40 year old MAle with Covid 19 , asthma & Downs syndrome being weaned off oxygen. Continues with wireless bioxx & is on 2 l high flow with sats 90 to 95%.IF PT desats he quickly recovers at rest. Bioxx showed 86% on 2 l so had to resume 3 l this am when PT wide awake.Sat 93% on 3 l. Mother cares for PT assists with cares during day shift. Incont of bowels tonight, Mother says chronic diarrhea on immodium to tx , rx given once with helpful effect.
[2021-06-07 05:23] LABS: BASOPHILS ABSOLUTE AUTO 0.03 K/mm3 (0.00-0.23); BASOPHILS PERCENT AUTO 0 % (0-2); EOSINOPHILS PERCENT AUTO 0 % (0-6); Hematocrit 38.6 % (37.0-53.0); Hemoglobin 12.3 g/dL (13.5-17.5); Mean Corpuscular HGB 30.4 pg (26.0-34.0); Mean Corpuscular HGB Conc 31.9 g/dL (31.5-36.5); Mean Corpuscular Volume 95 fL (80-100); Mean Platelet Volume 12.5 fL (9.1-12.4); Platelet Count 169 K/mm3 (150-400); RDW Coefficient Variation 14.2 % (11.7-14.2); RDW Standard Deviation 49.1 fL (35.1-46.3); Red Blood Cell Count 4.05 M/mm3 (4.30-5.90); White Blood Cell Count 7.21 K/mm3 (4.00-11.30)
[2021-06-07 05:24] LABS: IMMATURE GRAN ABSOLUTE AUTO 0.19 K/mm3 (0.00-0.10); IMMATURE GRAN PERCENT AUTO 3 % (0-1); LYMPHOCYTES ABSOLUTE AUTO 1.19 K/mm3 (0.84-5.20); LYMPHOCYTES PERCENT AUTO 17 % (21-46); MONOCYTES ABSOLUTE AUTO 0.61 K/mm3 (0.16-1.47); MONOCYTES PERCENT AUTO 9 % (4-13); NEUTROPHILS ABSOLUTE AUTO 5.19 K/mm3 (1.96-9.15); NEUTROPHILS PERCENT AUTO 72 % (41-73)
[2021-06-07 05:48] LABS: Anion Gap 2 mmol/L (6-16); Blood Urea Nitrogen 27 mg/dL (8-24); Bun/Creatinine Ratio 39.6 (12.0-20.0); C-REACTIVE PROTEIN, EXT RANGE 0.363 mg/dL (0.000-0.300); CO2, Blood 33 mmol/L (21-32); Calcium, Blood 8.9 mg/dL (8.5-10.1); Chloride, Blood 101 mmol/L (98-108); Creatinine, Blood 0.68 mg/dL (0.60-1.20); Glomerular Filtration Rate >60 (60-); Glucose, Blood 161 mg/dL (70-99); Potassium, Blood 4.5 mmol/L (3.5-5.5); Sodium, Blood 136 mmol/L (136-145)
--- NOTE | 2021-06-07 15:40 | NUR ---
HOME O2 EVAL: PT SATS ON RA WAS 84% WHILE RESTING. PT O2 SATS ON 2LPM VIA HIGH FLOW NC WAS 92-95%. PT TO GO HOME WITH O2.
--- NOTE | 2021-06-07 16:58 | NUR ---
PT MUÑOZ CATHETER REMOVED PER MD REQUEST. PT WAITING TO VOID TO BE DC'D FROM HOSPITAL. [facility]A NOTIFIED OF HOME O2 ORDER VIA FAX AND TC. SPOKE TO GAIL AND AWAITING O2 TANK TO BE DELIVERED TO THE HOSPITAL AND CONCENTRATOR TO THE HOME. PT HAS AMBULATED WITH ONE ASSIST AND GAIT BELT TO BATHROOM AND WAS STEADY ON HIS FEET.
[2021-06-07] MEDS ORDERED: ELIQUIS2.5 MG PO (18:00)
[2021-06-07] MEDS ORDERED: METPRE8 PO (18:04)
--- NOTE | 2021-06-07 19:25 | NUR ---
DISCHARGE NOTE: PT A/O X 3 ON DC. PT IV REMOVED. PT MOTHER PRESENT AND INSTRUCTIONS GIVEN TO MOTHER. MOTHER VU. MEDICATIONS FAXED TO [facility] PT ESCORTED TO POV VIA [facility] AND [facility]. PT HAD O2 DELIVERED AND WAS PLACED ON 2 LPM FOR TRANSPORT.
--- NOTE | 2021-06-08 15:38 | NUR ---
RECIEVED A CALL FROM RONNY'S CAREGIVER UNABLE TO GET METHYLPREDNISOLONE FROM PHARMACY "NON OF THEM HAVE THE 8 MG TABS IN STOCK" CALLED DR KIRK AND NEW ORDER RECIEVED FOR METHYLPREDNISOLONE 4MG TABS: TAKE 10 TABS FOR 3 DAYS, THEN 8 TABS FOR 3 DAYS, THEN 6 TABS FOR 3 DAYS, THEN 4 TABS FOR 3 DAYS, THEN 2 TABS FOR 3 DAYS. DISP #90, NO REFILLS. CALLED RX TO [facility]. NOTIFIED [facility]ON[facility]S CAREGIVER.
== END 2021-06-07 18:52 | disposition home health service (06) | DRG 871 ==
LOC: ER 18:11 → MEDS 21:58
PROVIDERS: Emergency Medicine; Family Medicine; Internal Medicine; Internal Medicine Gastroenterology; Student in an Organized Health Care Education/Training Program; ADMIT Internal Medicine
PROC: 3E0333Z Introduction of Anti-inflammatory into Peripheral Vein, Percutaneous Approach (ICD-10-PCS; principal; 2021-05-30)
PROC: 8E0ZXY6 Isolation (ICD-10-PCS; 2021-05-30)
PROC: 5A09357 Assistance with Respiratory Ventilation, Less than 24 Consecutive Hours, Continuous Positive Airway Pressure (ICD-10-PCS; 2021-05-30)
PROC: XW033E5 Introduction of Remdesivir Anti-infective into Peripheral Vein, Percutaneous Approach, New Technology Group 5 (ICD-10-PCS; 2021-05-31)
DX: A41.89 Other specified sepsis (principal); U07.1 COVID-19; J96.01 Acute respiratory failure with hypoxia; E87.1 Hypo-osmolality and hyponatremia; N17.9 Acute kidney failure, unspecified; Z68.41 Body mass index [BMI] 40.0-44.9, adult; G93.1 Anoxic brain damage, not elsewhere classified; E78.5 Hyperlipidemia, unspecified; E03.9 Hypothyroidism, unspecified; F41.8 Other specified anxiety disorders; G47.33 Obstructive sleep apnea (adult) (pediatric); E66.01 Morbid (severe) obesity due to excess calories; G40.909 Epilepsy, unspecified, not intractable, without status epilepticus; J45.909 Unspecified asthma, uncomplicated; Z98.890 Other specified postprocedural states; Z79.899 Other long term (current) drug therapy; E78.00 Pure hypercholesterolemia, unspecified; E86.9 Volume depletion, unspecified; R73.9 Hyperglycemia, unspecified; Q90.9 Down syndrome, unspecified
CPT/HCPCS: 0202U; 36415; 36600; 71045; 71260; 80048; 80053; 80069; 82803; 82947; 83036; 83605; 83735; 83880; 84145; 84484; 85025; 86140; 93005; 93010; 94640; 94660; 94761; 94762; 96365; 96366; 96375; 97162; 99285-25; A9270; J0456; J0696; J1100; J1650; J1940; J2060; J2930; J7050; J7120; Q9967